=== PATIENT | male | born 1990 | race Caucasian/White ===

== ENCOUNTER 2017-12-18 17:20 | Emergency (ER) | payer SELFPAY ==
[2017-12-18 17:39] VITALS: BP 145/78; PULSE 72; RESP 16; TEMP 98.4; O2SAT 99
[2017-12-18] MEDS ORDERED: MAGICADU2 SWISH-SWAL (19:40)
--- NOTE | 2017-12-18 19:49 | PD ---
HPI Chief Complaint: ENT Complaint Time Seen by Provider: 19:23 Travel History International Travel<30 days: No Contact w/Intl Traveler<30days: No Traveled to known affect area: No History of Present Illness HPI Patient comes [facility] complaining of burning sensation in his throat that began 4 days ago after taking a on e-cigarette. Patient reports the e- cigarette overheated the liquid he was unaware and when he took an inspiration began having a burning sensation in his throat immediately. Patient reports taking Tylenol for this as well as trying gargling seems to help some. Patient reports symptoms improved with eating and drinking. Patient denies anything making symptoms worse. Denies any radiation of the pain. Denies any difficulty breathing, change in voice, or fevers. Patient reports he has not smoked or used an e-cigarette since incident occurred. Patient also requesting a note for work so that he can rest his throat. [facility] Past Medical History Medical History: Denies Significant Hx Social History Alcohol Use: Yes Tobacco Use: Yes Substance Use: No Allergies-Medications (Allergen,Severity, Reaction): Coded Allergies: No Known Allergies (Unverified , 12/18/17) Reported Meds & Prescriptions Reported Meds & Active Scripts Active Magic Mouthwash Adult Liq (Multi-Ingredient Mouthwash/Gargle) 120 Ml Susp 5 Ml SWISH-SWAL ACHS Each 5mL contains: Nystatin 200,000units, Diphenhydramine 4.25mg, Viscous Lidocaine 10mg, Ohara syrup 0.8 mL Review of Systems Except as stated in HPI: all other systems reviewed are Neg Physical Exam Narrative GENERAL: Well-developed, well nourished, in no acute distress, and non-ill appearing. SKIN: Focused skin assessment warm and dry. HEAD: Atraumatic. Normocephalic. EYES: Pupils equal and round. EOMI. No scleral icterus. No injection or drainage. ENT: No nasal bleeding or discharge. Mucous membranes pink and moist. Posterior pharynx nonerythematous without exudate. Uvula is midline. NECK: Trachea midline. No stridor or crepitus. Supple. No nuclear rigidity. CARDIOVASCULAR: Regular rate and rhythm. No murmur appreciated. RESPIRATORY: No accessory muscle use. No respiratory distress. Clear to auscultation. Breath sounds equal bilaterally. No stridor. MUSCULOSKELETAL: No obvious deformities. No clubbing. No cyanosis. No edema. Full range of motion. NEUROLOGICAL: Awake and alert. No obvious cranial nerve deficits. Motor grossly within normal limits. Normal speech. PSYCHIATRIC: Appropriate mood and affect; insight and judgment normal. Data Data Last Documented VS Vital Signs Date Time Temp Pulse Resp B/P (MAP) Pulse Ox O2 Delivery O2 Flow Rate FiO2 12/18/17 17:39 98.4 72 16 145/78 (100) 99 Orders Orders Ed Discharge Order (12/18/17 19:54) MDM Medical Decision Making Medical Screen Exam Complete: Yes Emergency Medical Condition: Yes Differential Diagnosis Chemical burn, throat irritation, pharyngitis Narrative Course Patient in no obvious distress upon re-evaluation. It has been more than 72 hours. There is no obvious signs of burning on exam. There is no crepitus or stridor. Patient is tolerating fluids, solids, and not having difficulty breathing. Patient is stable for outpatient follow-up. Discussed patient with Dr. Beckett prior to discharge, who is in agreement with plan of care and disposition. Patient was asked if they wanted to speak to my attending, which the patient did not wish to do at this time. Any questions/concerns in reference to patient diagnosis/condition discussed and clarified prior to patient's discharge. Reinforced sheer importance of close follow up with patient 's primary physician or primary care clinic. Instructed patient to return to ED immediately, if symptoms return/worsen. Patient showed understanding of above instructions. Further instructions and recommendations were detailed in discharge paperwork. Patient ambulated without difficulty out of ED at discharge. Diagnosis Primary Impression: Throat irritation Referrals: Refugio Clark MD [facility] Patient Instructions: General Instructions Departure Forms: Work Release Enter return to work date: Dec 20, 2017 Additional Instructions: Follow-up with your primary care physician and/or ENT in 3-5 days for reevaluation. Take all medication as prescribed. Use [id number] Tylenol for additional pain control. Follow instructions on the packaging. Do not use ibuprofen, Aleve, Motrin, or Advil until symptoms resolve completely. Drink plenty of non-caffeinated and nonalcoholic fluids. Continue to not smoke or vape until at least symptoms completely resolved or completely stop. Return to the emergency department if symptoms get worse. Med/Other Pt SpecificInfo: Prescription(s) given Scripts Juvycnbh-Bbinjagbajiujvi-Dosorqctm Liq (Magic Mouthwash Adult Liq) 120 Ml Susp 5 ML SWISH-SWAL ACHS for Mouth sores, #120 ML 0 Refills Each 5mL contains: Nystatin 200,000units, Diphenhydramine 4.25mg, Viscous Lidocaine 10mg, Ohara syrup 0.8 mL Prov: Jerrica Beckett MD 12/18/17 Disposition: 01 DISCHARGE HOME Condition: Stable Alden Zamorano Dec 18, 2017 19:49
== END 2017-12-18 20:00 | disposition home or self-care (01) ==
LOC: NEPK 17:20
DX: R07.0 Pain in throat (principal); X58.XXXA Exposure to other specified factors, initial encounter; Z72.0 Tobacco use
CPT/HCPCS: 99283